=== PATIENT | female | born 1975 | race Caucasian/White ===

== ENCOUNTER 2016-12-16 15:59 | Inpatient (IN) | payer MEDICAID ==
[~2016-12-16] VITALS: Ht 162.6 cm; Wt 72.2 kg
[2016-12-16 17:14] LABS: microscopic required? YES; urine erythrocyte TRACE (NEGATIVE)
[2016-12-16 17:17] LABS: BASOPHIL % 0.4 % (0-2); PLATELET COUNT 376 x10^3mcL (130-400)
[2016-12-16 17:19] LABS: RED CELL DISTRIBUTION WIDTH 15.5 % (11.5-14.5)
[2016-12-16 17:26] LABS: CALCIUM 8.8 mg/dL (8.5-10.1); CHLORIDE SERUM 105 mmol/L (98-107); CREATININE SERUM 0.7 mg/dL (0.6-1.0); GFR1 > 60 mL/min; GLUCOSE SERUM 93 mg/dL (74-106); POTASSIUM SERUM 3.6 mmol/L (3.5-5.1); SODIUM SERUM 141 mmol/L (136-145)
[2016-12-16 17:30] LABS: ALBUMIN 4.1 g/dL (3.4-5.0); ALKALINE PHOSPHATASE 90 U/L (46-116); ALT/SGPT 22 U/L (14-59); AST/SGOT 16 U/L (15-37); BILIRUBIN TOTAL 0.2 mg/dL (0.20-1.00); TOTAL PROTEIN, SERUM 7.8 g/dL (6.4-8.2)
[2016-12-16] MEDS ORDERED: IBUPROFEN400 MG PO (18:10)
[2016-12-16 19:03] VITALS: BP 117/70
[2016-12-16 19:11] VITALS: Ht 162.6 cm; Wt 72.2 kg
[2016-12-16 19:28] LABS: AMPHETAMINE QUAL UR NONE DETECTED (NEG <=1000)
[2016-12-16 19:28] LABS: MAGNESIUM 1.8 mg/dL (1.8-2.4); PHOSPHOROUS 2.7 mg/dL (2.5-4.9)
[2016-12-16 19:29] LABS: CHOLESTEROL/HDL RATIO 5.5
[2016-12-16 19:33] LABS: FREE T4 0.92 ng/dL (0.76-1.46); FREE THYROXINE INDEX 2.5 ug/dL (1.4-4.5); T4(THYROXINE) 7.9 ug/dL (4.7-13.3)
[2016-12-16 19:34] LABS: T3 TOTAL 1.04 ng/mL
[2016-12-16 22:59] VITALS: BP 118/71
[2016-12-17 06:23] LABS: BASOPHIL % 0.5 % (0-2); PLATELET COUNT 327 x10^3mcL (130-400); RED BLOOD CELLS 3.97 M/mm3 (4.10-5.10)
[2016-12-17 06:26] LABS: IRON 52 ug/dL (50-170); TOTAL IRON BINDING CAPACITY 348 ug/dL (250-450)
[2016-12-17 06:30] LABS: CALCIUM 8.2 mg/dL (8.5-10.1); CARBON DIOXIDE 26.9 mmol/L (21-32); CHLORIDE SERUM 108 mmol/L (98-107); CREATININE SERUM 0.7 mg/dL (0.6-1.0); GFR1 > 60 mL/min; GLUCOSE SERUM 83 mg/dL (74-106); MAGNESIUM 1.8 mg/dL (1.8-2.4); PHOSPHOROUS 3.5 mg/dL (2.5-4.9); POTASSIUM SERUM 3.9 mmol/L (3.5-5.1); SODIUM SERUM 143 mmol/L (136-145)
[2016-12-17 06:31] VITALS: BP 104/52
[2016-12-17 07:35] LABS: RED CELL DISTRIBUTION WIDTH 15.5 % (11.5-14.5)
[2016-12-17 09:52] VITALS: BP 109/63
[2016-12-17 14:00] VITALS: BP 126/72
[2016-12-17 18:03] VITALS: BP 119/70
[2016-12-17 20:58] VITALS: BP 115/64
[2016-12-18 05:53] VITALS: BP 106/56
[2016-12-18 06:42] LABS: BASOPHIL % 0.4 % (0-2); PLATELET COUNT 332 x10^3mcL (130-400)
[2016-12-18 06:51] LABS: CALCIUM 8.2 mg/dL (8.5-10.1); CARBON DIOXIDE 24.4 mmol/L (21-32); CHLORIDE SERUM 108 mmol/L (98-107); CREATININE SERUM 0.6 mg/dL (0.6-1.0); GFR1 > 60 mL/min; GLUCOSE SERUM 78 mg/dL (74-106); POTASSIUM SERUM 3.8 mmol/L (3.5-5.1); SODIUM SERUM 143 mmol/L (136-145)
[2016-12-18 07:18] LABS: RED CELL DISTRIBUTION WIDTH 15.5 % (11.5-14.5)
[2016-12-18 07:48] LABS: TRANSFERRIN 277 mg/dL (200-370)
[2016-12-18] MEDS ORDERED: ECO81 PO (08:43)
[2016-12-18] MEDS ORDERED: LOVASTATIN40 MG PO (08:44)
[2016-12-18 10:00] VITALS: BP 110/65
[2016-12-18 12:46] VITALS: BP 106/56
== END 2016-12-18 16:51 | disposition home or self-care (01) | DRG 45 ==
LOC: ED 15:59 → DU 17:58 → MU 12-18 11:40
PROVIDERS: Emergency Medicine; ADMIT Family Medicine
DX: I63.9 Cerebral infarction, unspecified (principal); G81.04 Flaccid hemiplegia affecting left nondominant side; E78.2 Mixed hyperlipidemia; D50.9 Iron deficiency anemia, unspecified; R29.810 Facial weakness; Z68.27 Body mass index [BMI] 27.0-27.9, adult
CPT/HCPCS: 82962; 83880; 84439; 92610; 94150; 97110-GP; 97116-GP; 97530-GP; J2270; J2405; J3010; J7030; Q0092

== ENCOUNTER 2018-09-13 19:52 | Emergency (ER) | payer SELFPAY ==
[~2018-09-13] VITALS: Ht 162.6 cm; Wt 67.6 kg
[~2018-09-13 19:52] MED LIST: ECO81 PO; IBUPROFEN400 MG PO; LOVASTATIN40 MG PO
[2018-09-13 20:28] VITALS: Ht 162.6 cm; Wt 67.6 kg
[2018-09-13 22:18] VITALS: BP 104/69
== END 2018-09-13 22:18 | disposition home or self-care (01) ==
LOC: ED 19:52
DX: G44.209 Tension-type headache, unspecified, not intractable (principal); K21.9 Gastro-esophageal reflux disease without esophagitis; Z86.73 Personal history of transient ischemic attack (TIA), and cerebral infarction without residual deficits
CPT/HCPCS: J0780; J1885